=== PATIENT | female | born 1980 | race Two or more races ===

== ENCOUNTER 2020-09-06 12:21 | Emergency (ER) | payer MEDICAID, OTHER ==
[~2020-09-06] VITALS: Ht 149.9 cm; Wt 65.8 kg
[~2020-09-06 12:21] MED LIST: ACE325RS; PRENCAP OR
[2020-09-06 12:35] VITALS: BP 106/79
[2020-09-06] MEDS ORDERED: ACETAMINOPHEN 500 MG TAB PO ONE (12:45)
== END 2020-09-06 15:23 | disposition home or self-care (01) ==
LOC: ER 12:21
DX: L03.317 Cellulitis of buttock (principal); F17.210 Nicotine dependence, cigarettes, uncomplicated; Z87.442 Personal history of urinary calculi; Z98.51 Tubal ligation status; Z88.0 Allergy status to penicillin; Z88.6 Allergy status to analgesic agent

== ENCOUNTER 2024-03-15 11:26 | Emergency (ER) | payer MEDICAID, OTHER ==
[~2024-03-15] VITALS: Ht 149.9 cm; Wt 54.4 kg
[2024-03-15] MEDS: ALBUTEROL SULF 2.5 MG/0.5ML(0.5%) NEB SOLN NEB ONE (11:54)
[2024-03-15] MEDS: BUDESONIDE (INHALATION) 0.5 MG/2 ML NEB NEB ONE (11:54)
[2024-03-15] MEDS: SODIUM CHLORIDE 0.9% 1,000 ML IV ONE (12:15)
[2024-03-15] MEDS: DexAMETHasone SOD PHOS 10MG/1ML VIAL INJ IV ONE (12:15)
[2024-03-15] MEDS: diphenhdrAMINE HCL 50 MG/1 ML VL IV ONE (12:15)
[2024-03-15] MEDS: FAMOTIDINE (10MG/ML) 2ML VL IV ONE (12:15)
[2024-03-15 13:00] VITALS: BP 129/79; PULSE 63; RESP 18; O2SAT 99
[2024-03-15] MEDS ORDERED: DEX4T PO (13:14)
[2024-03-15] MEDS ORDERED: FAMO20TA10 PO (13:14)
[2024-03-15] MEDS ORDERED: LORA-622 PO (13:14)
== END 2024-03-15 14:08 | disposition home or self-care (01) ==
LOC: ER 11:30
DX: L50.0 Allergic urticaria (principal); R22.0 Localized swelling, mass and lump, head; Z88.0 Allergy status to penicillin; Z88.6 Allergy status to analgesic agent; Z98.51 Tubal ligation status; Z87.442 Personal history of urinary calculi
CPT/HCPCS: 70360; 94640; 96361; 96374; 96375; 99284; J1100; J1200; J3490; J7030

== ENCOUNTER 2025-05-17 22:05 | Emergency (ER) | payer MEDICAID ==
[~2025-05-17] VITALS: Ht 149.9 cm; Wt 63.6 kg
[~2025-05-17 22:05] MED LIST changes: +DEX4T PO; +FAMO20TA10 PO; +LORA-622 PO
[2025-05-18 00:08] LABS: Hematocrit 35.7 % (36.0-46.0); Hemoglobin 12.3 g/dL (12.2-16.2); Mean Corpuscular Hemoglobin 32.7 pg (28.0-32.0); Mean Corpuscular Volume 95.0 fL (80.0-100.0); Nucleated Red Blood Cells % 0.1 %
[2025-05-18 00:12] LABS: Chloride 106 mmol/L (98-107); Sodium 142 mmol/L (136-145)
[2025-05-18 00:13] LABS: Anion Gap 8 (5-15); Calcium 9.1 mg/dL (8.7-10.4); Carbon Dioxide 28 mmol/L (20-31)
--- NOTE | 2025-05-18 00:13 | DVH ---
COMPUTERIZED TOMOGRAPHY OF THE HEAD WITHOUT CONTRAST REASON FOR STUDY: Fall/head trauma/LOC COMPARISON: None TECHNIQUE: Helical tomographic scans were obtained through the brain. 2-D coronal and sagittal refor matted images are provided. Radiation optimization: All CT scans at this facility use at least one of these dose optimization techniques: Automated exposure control mA and/or kV adjustment per patient s ize (includes targeted exams where dose is matched to clinical indication) or iterative reconstructio n. RADIATION DOSE: CTDI: 53 mGy DLP: 942 mGy-cm FINDINGS: No suspicious intracranial hyperdensity to suggest acute blood. There is no mass effect n or midline shift. There is no hydrocephalus. The suprasellar cistern is intact. The calvarium is inta ct. The visualized mastoid air cells and paranasal sinuses are clear. There is mild right parietal sc alp swelling. IMPRESSION: No acute intracranial abnormality.
[2025-05-18 00:18] LABS: BUN/Creatinine Ratio 13.4 (10.0-20.0); Blood Urea Nitrogen 9 mg/dL (9-23); Glucose 89 mg/dL (74-106)
[2025-05-18 00:51] LABS: Potassium 3.2 mmol/L (3.5-5.1)
[2025-05-18] MEDS ORDERED: HYDR-4902 PO (01:45)
[2025-05-18] MEDS ORDERED: IBUP-1455 PO (01:45)
--- NOTE | 2025-05-18 01:46 | ED.PDOC ---
Musculoskeletal HPI Comments This patient is a 44-year-old female who arrives to the ED today via EMS due to complaints of head pain and right shoulder pain status post fall out of her trailer approximately 1 hour prior to arrival. Patient states she has been drinking when she tripped and fell out of her trailer. Patient can not recall whether there was a loss of consciousness. No blood loss noted. Vital signs were stable. Chief Complaint: Fall Injury Time Seen by MD: 23:23 Primary Care Provider: CAROL Reviewed Notes: Nurses Notes, Tax Services Professional Notes Allergies: Coded Allergies: Acetaminophen (Verified Allergy, Unknown, 09/06/20) Hydrocodone (Verified Allergy, Unknown, 09/06/20) Penicillins (Verified Allergy, Unknown, 09/06/20) Home Meds Active Scripts Famotidine (PEPCID TABLET) 20 Mg Tb, 1 TAB PO BID for 10 Days, #20 TAB 5 Refills Prov:JEREMI DA SILVAG S DO 03/15/24 Dexamethasone (Decadron) 4 Mg Tb, 8 MG PO DAILY for 10 Days, #20 TAB Prov:KEUMJEREMIG S DO 03/15/24 Loratadine (Claritin) 10 Mg Tab, 1 TAB PO DAILY for 30 Days, #30 TAB 5 Refills Prov:KEBILLZAKIATerriDELG S DO 03/15/24 Reported Medications Mv & Min W/Fe Fumarat ( 1) Cap, 1 OR 02/12/13 Acetaminophen (Tylenol) 325 Mg Rc 04/16/11 Information Source: Patient, Emergency Med Personnel Mode of Arrival: EMS Location: Right Extremity Location: Shoulder Timing: Minutes Prehospital treatment: None Severity: Moderate Able to Move Extremity: Yes Bear Weight: Fully Pain: Moderate Hand Dominance: Right Mechanism: Blunt Trauma Circumstances: Fall Onset of Symptoms: After Trauma Symptoms: Pain DVT Risk Factors: NONE Past Medical History PAST MEDICAL HISTORY: Kidney Stones, UTI'S Surgical History: BTL, 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 Pertinent OUTSIDE MACHINIST SUPERVISOR History Family History Family History: Unknown Social History Smoker: Cigarettes, Less Than 1 Pack/Day Alcohol: Occasionally Drugs: Denies Drug Use Lives In: Home Constitutional: denies: chills, diaphoresis, fatigue, fever, malaise, sweats, weakness, others EENTM: denies: blurred vision, double vision, ear bleeding, ear discharge, ear drainage, ear pain, ear ringing, eye pain, eye redness, hearing loss, mouth pain, mouth swelling, nasal discharge, nose bleeding, nose congestion, nose pain, photophobia, tearing, throat pain, throat swelling, voice changes, others Respiratory: denies: cough, hemoptysis, orthopnea, SOB at rest, shortness of breath, SOB with excertion, stridor, wheezing, others Cardiovascular: denies: chest pain, dizzy spells, diaphoresis, Dyspnea on exertion, edema, irregular heart beat, left arm pain, lightheadedness, palpitations, PND, syncope, others Gastrointestinal: denies: abdomen distended, abdominal pain, blood streaked bowels, constipated, diarrhea, dysphagia, difficulty swallowing, hematemesis, melena, nausea, poor appetite, poor fluid intake, rectal bleeding, rectal pain, vomiting, others Genitourinary: denies: abnormal vagina bleeding, burning, dyspareunia, dysuria, flank pain, frequency, hematuria, incontinence, pain, , vagina dis charge, urgency, others Neurological: reports: headache; denies: dizziness, fainting, left sided numbness, left sided weakness, numbness, paresthesia, pre-existing deficit, right sided numbness, right sided weakness, seizure, speech problems, tingling, tremors, weakness, others Musculoskeletal: reports: others (Right shoulder pain); denies: back pain, gout, joint pain, joint swelling, muscle pain, muscle stiffness, neck pain Integumetry: denies: bruises, change in color, change in hair/nails, dryness, laceration, lesions, lumps, rash, wounds, others Allergic/Immunocompromised: denies: Difficulty Healing, Frequent Infections, Hives, Itching, others Hematologic/Lymphatic: denies: anemia, blood clots, easy bleeding, easy bruising, swollen glands, others Endocrine: denies: excessive hunger, excessive sweating, excessive thirst, excessive urination, flushing, intolerance to cold, intolerance to heat, unexplained weight gain, unexplained weight loss, others Psychiatric: denies: anxiety, bipolar disorder, depression, hopeless, panic disorder, schizophrenia, sleepless, suicidal, others Physical Exam General Appearance: Moderate Distress (Moderate distress due to headache and mild shoulder pain.), Normal HEENT: Head (Cranial evaluation was relatively unremarkable. Unable to appreciate any signs of trauma. No skull depressions or deformities.), Normal ENT Inspection, Pharynx Normal, TMs Normal Neck: Full Range of Motion, Non-Tender, Normal, Normal Inspection Respiratory: Chest Non-Tender, Lungs Clear, No Accessory Muscle Use, No Respiratory Distress, Normal Breath Sounds Cardiovascular: No Edema, No JVD, No Murmur, No Gallop, Normal Peripheral Pulses, Regular Rate/Rhythm Breast Exam: Deferred Gastrointestinal: No Organomegaly, Non Tender, No Pulsatile Mass, Normal Bowel Sounds, Soft Genitalia: Deferred Pelvic: Deferred Rectal: Deferred Extremities: Other (Patient has some [id number] right anterior and lateral tenderness to palpation. Reasonable range of motion displayed. No crepitus noted. No deformities noted.) Neurologic: Alert, No Motor Deficits, Normal Affect, Normal Mood, No Sensory Deficits Cerebellar Function: NOT DONE Reflexes: NOT DONE Skin: Dry, Normal Color, Warm Lymphatic: No Adenopathy Was a procedure done? Was a procedure done?: No Differential Diagnosis EXT Differential Diagnosis: Other (Subarachnoid hemorrhage, subdural hematoma, skull fracture, shoulder contusion, fall) X-Ray, Labs, Meds, VS Vital Signs Date Time Temp Pulse Resp B/P (MAP) Pulse Ox O2 Delivery O2 Flow Rate FiO2 05/17/25 22:23 98.2 71 20 133/86 95 98.2 Lab Test 05/17/25 23:46 Range/Units White Blood Count 8.9 4.4-10.8 10^3/uL Red Blood Count 3.76 L 4.0-5.20 10^6/uL Hemoglobin 12.3 12.2-16.2 g/dL Hematocrit 35.7 L 36.0-46.0 % Mean Corpuscular Volume 95.0 80.0-100.0 fL Mean Corpuscular Hemoglobin 32.7 H 28.0-32.0 pg Mean Corpuscular Hemoglobin Concent 34.4 32.0-36.0 g/dL Red Cell Distribution Width 12.9 11.8-14.3 % Platelet Count 298 140-450 10^3/uL Mean Platelet Volume 7.1 6.9-10.8 fL Neutrophils (%) (Auto) 75.3 37.0-80.0 % Lymphocytes (%) (Auto) 18.1 10.0-50.0 % Monocytes (%) (Auto) 5.8 0.0-12.0 % Eosinophils (%) (Auto) 0.5 0.0-7.0 % Basophils (%) (Auto) 0.3 0.0-2.0 % Neutrophils # (Auto) 6.7 1.6-8.6 10 ^3/uL Lymphocytes # (Auto) 1.6 0.4-5.4 10 ^3/uL Monocytes # (Auto) 0.5 0-1.3 10 ^3/uL Eosinophils # (Auto) 0 0-0.8 10 ^3/uL Basophils # (Auto) 0 0-0.2 10 ^3/uL Nucleated Red Blood Cells 0.1 % Sodium Level 142 136-145 mmol/L Potassium Level 3.2 L 3.5-5.1 mmol/L Chloride Level 106 98-107 mmol/L Carbon Dioxide Level 28 20-31 mmol/L Anion Gap 8 5-15 Blood Urea Nitrogen 9 9-23 mg/dL Creatinine 0.67 0.550-1.02 mg/dL Glomerular Filtration Rate Calc 111 >90 mL/min BUN/Creatinine Ratio 13.4 10.0-20.0 Serum Glucose 89 74-106 mg/dL Calcium Level 9.1 8.7-10.4 mg/dL Troponin I High Sensitivity < 3 L </=34 ng/L Plasma/Serum Blood Alcohol < 3.0 <10 mg/dL X-Ray, Labs, Meds, VS Comment All studies performed the ED were evaluated by me personally. CT studies of the head was unremarkable for any acute intracranial concerns. Patient did not require imaging studies of the right shoulder. Patient sustained some contusions due to her falling event. Advised pain medication as needed. Time of 1ST Reevaluation: Reevaluation 1ST: Improved Consultation: PCP Patient Education/Counseling: Diagnosis, Treatment Family Education/Counseling: Diagnosis, Treatment Sepsis Recent Procedure: No On Antibiotic Therapy: No Respiratory Rate >20: No Heart Rate >90: No Temp<36 C (96.8 F) or >38.3 C: No SBP <90 or MAP <65 mmHG: No New Acute Mental Status Change: No Is the patient on CPAP, BIPAP,: No IV fluid given: No Departure 1 Departure Time of Disposition: : Impression: Primary Impression: Fall Additional Impressions: Head trauma Shoulder contusion Disposition: 01 HOME / SELF CARE / HOMELESS Condition: Stable Additional Instructions: Advise utilizing pain medication as needed for symptomatic relief. Additionally, advised ice therapy. e-Prescriptions Hydrocodone-Acetaminophen (Hydrocodone Bitartrate/AC 5-325 mg) 1 Tab Tab 1 TAB PO Q6HP PRN, #12 TAB Prov: JULIETTE WILKS PAC 05/18/25 Ibuprofen Micronized (Ibuprofen) 800 Mg Tab 800 MG PO Q8HP PRN, #20 TAB Prov: JULIETTE WILKS PAC 05/18/25 Discharged With: Self, Friend Critical Care Note Critical Care Time?: No Stability Stability form required: No Heart Score Heart Score: Heart Score Response (Comments) Value History N/A 0 EKG N/A 0 Age N/A 0 Risk Factors N/A 0 Troponin N/A 0 Total 0 JULIETTE WILKS PAC May 18, 2025 01:46
[2025-05-18 03:39] VITALS: BP 119/72; PULSE 79; RESP 16; TEMP 97.9; O2SAT 99
[2025-05-18] MEDS: KETOROLAC TROMETH 60MG/2ML VIAL IM ONE (03:39)
== END 2025-05-18 03:43 | disposition home or self-care (01) ==
LOC: EDBD 22:05 → ER 22:05 → EDUNIT# 22:05 → ER 05-18 03:39
DX: S40.011A Contusion of right shoulder, initial encounter (principal); S09.8XXA Other specified injuries of head, initial encounter; F17.210 Nicotine dependence, cigarettes, uncomplicated; F10.90 Alcohol use, unspecified, uncomplicated; Z87.442 Personal history of urinary calculi; Z87.440 Personal history of urinary (tract) infections; Z98.890 Other specified postprocedural states; Z98.51 Tubal ligation status; Z88.5 Allergy status to narcotic agent; Z79.52 Long term (current) use of systemic steroids; Z88.0 Allergy status to penicillin; Z79.899 Other long term (current) drug therapy; W01.0XXA Fall on same level from slipping, tripping and stumbling without subsequent striking against object, initial encounter; Y93.89 Activity, other specified; Y92.89 Other specified places as the place of occurrence of the external cause; Y99.8 Other external cause status; Y90.9 Presence of alcohol in blood, level not specified
CPT/HCPCS: 36415; 70450; 80048; 80320; 84484; 85025

== ENCOUNTER 2025-08-27 10:47 | Emergency (ER) | payer MEDICAID ==
[~2025-08-27] VITALS: Ht 325.1 cm; Wt 54.6 kg
[~2025-08-27 10:47] MED LIST changes: +HYDR-4902 PO; +IBUP-1455 PO
[2025-08-27] MEDS: methylPREDNISolone SOD SUCC 125 MG/2 ML VL IM ONE (11:46)
[2025-08-27] MEDS ORDERED: CEPH500C PO (11:48)
[2025-08-27] MEDS ORDERED: TRIA0.02 TOP (11:48)
[2025-08-27 11:53] VITALS: BP 112/78; PULSE 88; RESP 18; TEMP 97.9; O2SAT 100
--- NOTE | 2025-08-27 11:53 | ED.PDOC ---
History of Present Illness(SKN HPI Comments A 45 YEAR OLD FEMALE PRESENTS TO THE ED WITH COMPLAINT OF BEE STING . PT STATES HE WAS STUNG BY BEE 25X MINUTES PRIOR TO ED ARRIVAL. PT HAS LOCALIZED PAIN AND SWELLING TO L FOREARM SITE BY BEE STING. PT OTHERWISE HAS STABLE VITALS IN THE ED. PATIENT DENIES FEVER, CHILLS, SHORTNESS OF BREATH, CHEST PAIN, ABDOMINAL PAIN, NAUSEA, VOMITING, HEADACHE, OR OTHER COMPLAINTS. NO OTHER SYMPTOMS OR MODIFYING FACTORS AT THIS TIME. PATIENT IS ALERT, ORIENTED X 4, AND HAS STEADY GAIT. Chief Complaint: Insect Bite Time Seen by MD: 11:51 Primary Care Provider: CAROL History of Present Illness: Medications, Allergies Allergies: Coded Allergies: Acetaminophen (Verified Allergy, Unknown, 09/06/20) Diphenhydramine (Verified Allergy, Unknown, 08/27/25) Hydrocodone (Verified Allergy, Unknown, 09/06/20) Penicillins (Verified Allergy, Unknown, 09/06/20) Uncoded Allergies: BEE STINGS (Allergy, Unknown, 08/27/25) Home Meds Active Scripts Cephalexin Monohydrate (Cephalexin) 500 Mg Cap, 1 CAP PO QID, #28 CAP Prov:MIKHAIL BOBO 08/27/25 Triamcinolone Acetonide (Triamcinolone Acetonide) 0.025 % Cre, 1 APPLIC TOP BID, #30 GRAMS Prov:MIKHAIL BOBO 08/27/25 Hydrocodone-Acetaminophen (Hydrocodone Bitartrate/AC 5-325 mg) 1 Tab Tab, 1 TAB PO Q6HP PRN, #12 TAB Prov:JULIETTE WILKS PAC 05/18/25 Ibuprofen Micronized (Ibuprofen) 800 Mg Tab, 800 MG PO Q8HP PRN, #20 TAB Prov:JULIETTE WILKS PAC 05/18/25 Famotidine (PEPCID TABLET) 20 Mg Tb, 1 TAB PO BID for 10 Days, #20 TAB 5 Refills Prov:MOOK DA SILVA DO 03/15/24 Dexamethasone (Decadron) 4 Mg Tb, 8 MG PO DAILY for 10 Days, #20 TAB Prov:MOOK DA SILVA DO 03/15/24 Loratadine (Claritin) 10 Mg Tab, 1 TAB PO DAILY for 30 Days, #30 TAB 5 Refills Prov:MOOK DA SILVA DO 03/15/24 Reported Medications Mv & Min W/Fe Fumarat ( 1) Cap, 1 OR 02/12/13 Acetaminophen (Tylenol) 325 Mg Rc 04/16/11 Information Source: Patient Mode of Arrival: Ambulatory Brought in by: SELF Severity: Moderate Timing: Minutes Location: Extremities (LEFT FOREARM ) Mechanism: Insect Developed: Pruritus, Rash Occurence: Outdoors Object: None Condition of Object: None Retained Foreign Body: No Wound Type: Papule Immunization Status of Animal: Current Tetanus: UTD Associated Signs and Symptoms: Redness, Pain Past Medical History PAST MEDICAL HISTORY: Kidney Stones, UTI'S Surgical History: BTL, 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 Pertinent VEHICLE TECHNICIAN History Family History Family History: Unknown Social History Smoker: Cigarettes, Less Than 1 Pack/Day Alcohol: Occasionally Drugs: Denies Drug Use Lives In: Home Constitutional: denies: chills, diaphoresis, fatigue, fever, malaise, sweats, weakness, others EENTM: denies: blurred vision, double vision, ear bleeding, ear discharge, ear drainage, ear pain, ear ringing, eye pain, eye redness, hearing loss, mouth pain, mouth swelling, nasal discharge, nose bleeding, nose congestion, nose pain, photophobia, tearing, throat pain, throat swelling, voice changes, others Respiratory: denies: cough, hemoptysis, orthopnea, SOB at rest, shortness of breath, SOB with excertion, stridor, wheezing, others Cardiovascular: denies: chest pain, dizzy spells, diaphoresis, Dyspnea on exertion, edema, irregular heart beat, left arm pain, lightheadedness, palpitations, PND, syncope, others Gastrointestinal: denies: abdomen distended, abdominal pain, blood streaked bowels, constipated, diarrhea, dysphagia, difficulty swallowing, hematemesis, melena, nausea, poor appetite, poor fluid intake, rectal bleeding, rectal pain, vomiting, others Genitourinary: denies: abnormal vagina bleeding, burning, dyspareunia, dysuria, flank pain, frequency, hematuria, incontinence, pain, , vagina discharge, urgency, others Neurological: denies: dizziness, fainting, headache, left sided numbness, left sided weakness, numbness, paresthesia, pre-existing deficit, right sided numbness, right sided weakness, seizure, speech problems, tingling, tremors, weakness, others Musculoskeletal: denies: back pain, gout, joint pain, joint swelling, muscle pain, muscle stiffness, neck pain, others Integumetry: reports: lumps (LEFT FOREARM ), rash, others (BEE STING L FOREARM); denies: bruises, change in color, change in hair/nails, dryness, laceration, lesions, wounds Allergic/Immunocompromised: reports: Itching; denies: Difficulty Healing, Frequent Infections, Hives, others Hematologic/Lymphatic: denies: anemia, blood clots, easy bleeding, easy bruising, swollen glands, others Endocrine: denies: excessive hunger, excessive sweating, excessive thirst, excessive urination, flushing, intolerance to cold, intolerance to heat, unexplained weight gain, unexplained weight loss, others Psychiatric: denies: anxiety, bipolar disorder, depression, hopeless, panic disorder, schizophrenia, sleepless, suicidal, others All Other Systems: Reviewed and Negative Physical Exam General Appearance: No Apparent Distress, Normal HEENT: Normal ENT Inspection, PERRL/EOMI, Pharynx Normal, TMs Normal Neck: Full Range of Motion, Non-Tender, Normal, Normal Inspection Respiratory: Chest Non-Tender, Lungs Clear, No Accessory Muscle Use, No Respiratory Distress, Normal Breath Sounds Cardiovascular: No Edema, No JVD, No Murmur, No Gallop, Normal Peripheral Pulses, Regular Rate/Rhythm Breast Exam: Deferred Gastrointestinal: No Organomegaly, Non Tender, No Pulsatile Mass, Normal Bowel Sounds, Soft Genitalia: Deferred Pelvic: Deferred Rectal: Deferred Extremities: No calf tenderness, Normal capillary refill, Normal inspection, Normal range of motion, Non-tender, No pedal edema Musculoskeletal : Apperance: Normal Neurologic: Alert, dry starch supervisor II-XII nml as Tested, No Motor Deficits, Normal Affect, Normal Mood, No Sensory Deficits Cerebellar Function: Normal Reflexes: Normal Skin: Dry, Normal Color, Rash (SKIN RASH WITH LOCALIZED REDNESS AND TENDERNESS ON LEFT INNER FOREARM. +BITE BITE JULIETTE. ), Warm Peripheral Pulses: 2+ carotid (R), 2+ carotid (L) Lymphatic: No Adenopathy Was a procedure done? Was a procedure done?: No Differential Diagnosis (INTG) Differential Diagnosis: Other (BEE STING) Differential Diagnosis: Atopic dermatitis, Contact Dermatitis Abscess: Abscess, Bacteremia, Cellulitis X-Ray, Labs, Meds, VS Vital Signs Date Time Temp Pulse Resp B/P (MAP) Pulse Ox O2 Delivery O2 Flow Rate FiO2 08/27/25 11:53 88 18 100 Room Air 08/27/25 11:53 97.9 88 18 112/78 (89) 100 97.9 08/27/25 10:48 97.9 88 18 112/78 100 97.9 Current Medications Medications (Trade) Dose Ordered Sig/Priya Route Start Time Stop Time Status Last Admin Methylprednisolone Sodium Succinate (Solu Medrol) 125 mg ONCE ONCE IM 08/27/25 11:45 08/27/25 11:55 DC 08/27/25 11:46 X-Ray, Labs, Meds, VS Comment COURSE: EXTERNAL MEDICAL RECORDS REVIEWED: [NONE] INDEPENDENT HISTORIANS: [NONE] SOCIAL DETERMINANTS OF HEALTH: [NONE] LABS ORDERED: NONE REVIEWED AND INTERPRETED RESULTS: NONE IMAGING ORDERED: NONE TREATMENTS ORDERED: SOLUMEDROL 125MG IM PROCEDURES PERFORMED: NONE CRITICAL CARE TIME: NONE I HAVE DISCUSSED THE PATIENT WITH THE ATTENDING PHYSICIAN DR. NEFF AND HE AGREES WITH THE PATIENT'S PLAN OF CARE AND DISPOSITION. BASED ON HISTORY OF PRESENT ILLNESS, AND PHYSICAL EXAM, PATIENT WILL BE DISCHARGED HOME. DISCUSSED PLAN FOR DISCHARGE HOME WITH RX [TRIAMCINOLONE 0.1% CREAM AND KEFLEX ]. MEDICATION WARNINGS GIVEN. SHARED DECISION MAKING: DISCUSSED WITH PATIENT THAT THEIR WORKUP WAS NORMAL. PATIENT INSTRUCTED TO FOLLOW UP WITH PRIMARY CARE PROVIDER IN 1-2 DAYS FOR RE- EVALUATION OF SYMPTOMS. PATIENT VERBALIZES UNDERSTANDING TO RETURN TO ED FOR NEW OR WORSENING SYMPTOMS OR IF FOLLOW UP WITH PCP CANNOT BE OBTAINED. PATIENT FEELS COMFORTABLE GOING HOME AT THIS TIME. ALL QUESTIONS ADDRESSED AT TIME OF DISC HARGE. Time of 1ST Reevaluation: 12:00 Reevaluation 1ST: Improved Patient Education/Counseling: Diagnosis, Treatment, Need For Follow Up Family Education/Counseling: Diagnosis, Treatment, Need For Follow Up Medical Screening: No EMC Exist At This Time SEPSIS Sepsis Screen Date sepsis recognized/suspect: Aug 27, 2025 Time Sepsis recognized/suspect: 1049 Recent Procedure: No On Antibiotic Therapy: No Respiratory Rate >20: No Heart Rate >90: No Temp<36 C (96.8 F) or >38.3 C: No SBP <90 or MAP <65 mmHG: No New Acute Mental Status Change: No Is the patient on CPAP, BIPAP,: No Vital Signs Date Time Temp Pulse Resp B/P (MAP) Pulse Ox O2 Delivery O2 Flow Rate FiO2 08/27/25 11:53 88 18 100 Room Air 08/27/25 11:53 97.9 88 18 112/78 (89) 100 97.9 08/27/25 10:48 97.9 88 18 112/78 100 97.9 Medications Medications Dose Ordered Sig/Priya Route Start Time Stop Time Status Last Admin Dose Admin Methylprednisolone Sodium Succinate 125 mg ONCE ONCE IM 08/27/25 11:45 08/27/25 11:55 DC 08/27/25 11:46 Departure 1 Departure Time of Disposition: 12:00 Impression: Primary Impression: Bee sting reaction Qualified Codes: T63.441A - Toxic effect of venom of bees, accidental (unintentional), initial encounter Disposition: HOME / SELF CARE / HOMELESS Condition: Stable Additional Instructions: INSTRUCTIONS: FOLLOW-UP WITH PCP IN 1 TO 2 DAYS. TAKE MEDICATIONS PRESCRIBED. RETURN TO ED FOR ANY NEW OR WORSENING SYMPTOMS. e-Prescriptions Cephalexin Monohydrate (Cephalexin) 500 Mg Cap 1 CAP PO QID, #28 CAP Prov: MIKHAIL BOBO 08/27/25 Triamcinolone Acetonide (Triamcinolone Acetonide) 0.025 % Cre 1 APPLIC TOP BID, #30 GRAMS Prov: MIKHAIL BOBO 08/27/25 Discharged With: Self Critical Care Note Critical Care Time?: No Stability Stability form required: No Heart Score Heart Score: Heart Score Response (Comments) Value History N/A 0 EKG N/A 0 Age N/A 0 Risk Factors N/A 0 Troponin N/A 0 Total 0 I personally scribed for MIKHAIL BOBO ([email or web address]) on 08/27/25 at 11:53. Electronically submitted by Chelly Carr ([email or web address]). MIKHAIL BOBO Aug 27, 2025 11:53
== END 2025-08-27 11:54 | disposition home or self-care (01) ==
LOC: ER 10:47
DX: T63.441A Toxic effect of venom of bees, accidental (unintentional), initial encounter (principal); F17.210 Nicotine dependence, cigarettes, uncomplicated; Z87.440 Personal history of urinary (tract) infections; Z87.442 Personal history of urinary calculi; Z88.0 Allergy status to penicillin; Z88.5 Allergy status to narcotic agent; Z91.030 Bee allergy status; Z98.51 Tubal ligation status; Z88.8 Allergy status to other drugs, medicaments and biological substances; Y92.89 Other specified places as the place of occurrence of the external cause
CPT/HCPCS: 96372; 99283; J2919